=== PATIENT | male | born 1955 | race Caucasian/White ===

== ENCOUNTER 2018-12-05 10:43 | Emergency (ER) | payer BC ==
[~2018-12-05] VITALS: Ht 175.2 cm; Wt 61.2 kg
[~2018-12-05 10:43] MED LIST: KLOR-CON M2020 ME1 PO; LASIX20 MG PO; ZOFRAN4 MG PO
[2018-12-05] MEDS ORDERED: AUGMENTIN 875875 MG PO (11:32)
== END 2018-12-05 13:16 | disposition home or self-care (01) ==
LOC: ED 10:43
DX: S51.851A Open bite of right forearm, initial encounter (principal); Z79.899 Other long term (current) drug therapy; W54.0XXA Bitten by dog, initial encounter; Y93.89 Activity, other specified; Y92.89 Other specified places as the place of occurrence of the external cause; Y99.9 Unspecified external cause status